=== PATIENT | female | born 1980 | race Caucasian/White ===

== ENCOUNTER 2017-06-24 11:40 | Inpatient (IN) | payer OTHER ==
[~2017-06-24] VITALS: Ht 158 cm; Wt 71.7 kg
[~2017-06-24 11:40] MED LIST: IBUP-2070 PO; PREN1TAB26 PO
[2017-06-24] MEDS ORDERED: RINGERS SOLUTION,LACTATED 1,000 ML IV PRN (12:03)
[2017-06-24] MEDS ORDERED: OXYTOCIN 30 UNITS/LACT RINGERS 500 ML IV ONE ×3 (12:06→16:21)
[2017-06-24] MEDS ORDERED: METOCLOPRAMIDE HCL 5 MG/ML 2 ML VIAL IVP PRN (12:15)
[2017-06-24] MEDS ORDERED: AMPICILLIN SODIUM 2 GM/NS 100 ML IV ONE ×2 (12:15→12:18)
[2017-06-24] MEDS ORDERED: CITRIC ACID/SODIUM CITRATE 30 ML SOLUTION UDCUP PO PRN (12:15)
[2017-06-24] MEDS ORDERED: LIDOCAINE HCL/PF 1% 30 ML VIAL INJ PRN (12:30)
[2017-06-24 12:32] LABS: BASOPHILS % (AUTO) 0.1 % (0.0-2.0); EOSINOPHILS % (AUTO) 0.1 % (1.0-6.0); HEMOGLOBIN 13.4 g/dL (12.0-16.0); LYMPHOCYTES # (AUTO) 1.6 K/uL (1.0-4.8); LYMPHOCYTES % (AUTO) 10.1 % (22.0-44.0); MEAN CORPUSCULAR HEMOGLOBIN 30.2 pg (26.0-34.0); MEAN CORPUSCULAR HGB CONC 34.2 G/dL (31.0-37.0); MEAN CORPUSCULAR VOLUME 88 fL (80-100); MONOCYTES # (AUTO) 0.6 K/uL (0.1-1.0); MONOCYTES % (AUTO) 3.8 % (2.0-9.0); NEUTROPHILS # (AUTO) 13.6 K/uL (1.8-7.7); RED BLOOD CELL COUNT(AUTO) 4.42 MIL/uL (4.00-5.20); RED CELL DISTRIBUTION WIDTH 12.2 % (11.5-14.5); WHITE BLOOD COUNT (AUTO) 15.9 K/uL (4.5-11.0)
[2017-06-24 12:38] LABS: NEUTROPHILS % (AUTO) 85.9 % (40.0-70.0)
[2017-06-24 12:50] VITALS: BP 122/92
[2017-06-24] MEDS: RINGERS SOLUTION,LACTATED 1,000 ML IV SCH ×2 (12:58→16:25)
[2017-06-24] MEDS ORDERED: FentaNYL/BUPIV 0.125%/NS/PF 0 ML ED ONE (13:14)
[2017-06-24] MEDS ORDERED: BUPIVACAINE HCL/PF 0.25% 30 ML VIAL ONE (13:15)
[2017-06-24] MEDS ORDERED: GLYCERIN/WITCH HAZEL LEAF 40 PADS JAR TP PRN (14:00)
[2017-06-24] MEDS ORDERED: ACETAMINOPHEN/CODEINE 300-30 MG TABLET PO PRN ×2 (14:00)
[2017-06-24] MEDS ORDERED: LANOLIN 7 GM OINTMENT TP PRN (14:00)
[2017-06-24] MEDS ORDERED: BENZOCAINE 20%/MENTHOL 56 GM SPRAY CANISTER TP PRN (14:00)
[2017-06-24] MEDS ORDERED: AMPICILLIN SODIUM 1 GM/NS 50 ML IV SCH (16:15)
[2017-06-24] MEDS: IBUPROFEN 800 MG TABLET PO SCH (16:16)
[2017-06-24] MEDS ORDERED: OXYGEN THERAPY IH SCH (20:00)
[2017-06-24] MEDS: MAGNESIUM HYDROXIDE SUSPENSION 30 ML UDCUP PO SCH (22:00)
[2017-06-25] MEDS: IBUPROFEN 800 MG TABLET PO SCH ×3 (00:37→12:45)
[2017-06-25] MEDS: MAGNESIUM HYDROXIDE SUSPENSION 30 ML UDCUP PO SCH (08:59)
[2017-06-25] MEDS ORDERED: IBUP-2070 PO (10:05)
[2017-06-25] MEDS ORDERED: DSS100 PO (10:06)
== END 2017-06-25 12:50 | disposition home or self-care (01) | DRG 775 ==
LOC: OBSVTOIN 11:40 → 4S 11:40
PROVIDERS: ADMIT Obstetrics & Gynecology; ATTEND Obstetrics & Gynecology
PROC: 10E0XZZ Delivery of Products of Conception, External Approach (ICD-10-PCS; principal; 2017-06-24)
PROC: 10907ZC Drainage of Amniotic Fluid, Therapeutic from Products of Conception, Via Natural or Artificial Opening (ICD-10-PCS; 2017-06-24)
DX: O60.14X0 Preterm labor third trimester with preterm delivery third trimester, not applicable or unspecified (principal); O09.513 Supervision of elderly primigravida, third trimester; Z37.0 Single live birth; Z3A.36 36 weeks gestation of pregnancy
CPT/HCPCS: 86850; 86900; 86901; J0290; J2590; J3490; J7120